=== PATIENT | male | born 1995 | race Caucasian/White ===

== ENCOUNTER 2019-01-12 16:47 | Emergency (ER) | payer SELFPAY ==
[2019-01-12 16:54] VITALS: BP 129/64; PULSE 109; RESP 18; TEMP 36.5; O2SAT 96
--- NOTE | 2019-01-12 17:31 | ED.GENADUL_ITS ---
Discharge Plan Disposition Patient Disposition: HOME Condition: Stable Discharge Details Chief Complaint: Laceration Clinical Impression: Finger laceration Primary Care Provider: None,None ED Provider: Karen Baeza Home Meds and New Rx's Prescriptions: No Action No Known Home Meds RF: 0 Discharge Instructions Instructions: Finger Laceration (ED) Additional Instructions: Keep wound clean and dry. If risk of contamination, keep wound covered. If resting at home, you may keep wound open to air. Return to emergency department in 7 days for suture removal. You will receive a call from care management regarding a follow-up appointment with a primary care doctor. Discharge Data Discharge Date/Time-TO BE ENTERED AT DEPARTURE: 01/12/19 18:34 Discharge Physician: Karen Baeza Medical Decision Making 23-year-old male who presents with right fifth finger laceration sustained with a knife while cutting [place] trees prior to arrival. Tetanus up-to-date. Denies any foreign bodies. 1.5 cm laceration on finger pad of right fifth finger. Neurovascularly intact. No active bleeding. Will need suture placement. Wound irrigated and 5 sutures placed. Wound covered with antibiotic ointment and dressed with gauze finger dressing. Patient instructed in the importance of good wound care, and covering if risk of contamination. He is instructed to return to the emergency department in 7 days for suture removal. Patient placed on care management list to arrange for follow-up appointment with the primary care doctor to establish care. HPI General Mode of arrival: ambulatory . Date/Time Provider Initiated Documentation: 01/12/19 16:57 . Limitations to Documentation: no limitations . Information obtained by: patient . HPI Narrative: Patient is a 23-year-old male who presents to the ED with right fifth finger laceration cut with a knife while cutting [place] trees approximately 6 hours ago. Tetanus up-to-date. Patient denies any other injuries. Related Data Home Medications Medication Instructions Recorded Confirmed Unknown [No Known Home Meds] 01/12/19 01/12/19 Allergies Allergy/AdvReac Type Severity Reaction Status Date / Time No Known Allergies Allergy Unverified 01/12/19 16:56 General Stated Complaint: Laceration ADOLFO: 4 Review of Systems Review of Systems All systems reviewed & are unremarkable except as noted in HPI and below Constitutional Reports as per HPI, Denies chills and Denies fever(s) Eyes Denies blurry vision ENT Denies dizziness, Denies sore throat and Denies throat swelling Cardiovascular Denies chest pain and Denies dyspnea Respiratory Denies cough and Denies dyspnea Gastrointestinal Denies abdominal pain, Denies diarrhea and Denies vomiting Genitourinary Denies hematuria and Denies dysuria Musculoskeletal Denies back pain and Denies numbness Integumentary/Breasts Denies lesions and Denies rash Neurologic Denies dizziness, Denies focal weakness and Denies numbness Allergic/Immunologic Denies throat swelling ON LICENSE OF [facility] Medical History No significant past medical history (Acute) Surgical History History of facial surgery (Acute) Social History Smoking/Tobacco Use Status: Current every day Tobacco Type: cigarettes Alcohol Intake: current Alcohol Intake frequency: a few times a week Drug use: Daily Substance use type: marijuana Do you feel safe at home: Yes Exam Const General: cooperative, healthy appearing and no acute distress HENMT Head: normal to inspection Mouth: oral mucosae normal Eyes General: appearance normal, both eyes and all related structures Neck Neck: normal visual inspection Resp Effort & Inspection: normal respiratory effort and able to speak in complete sentences Cardio Rate: regular rate Skin General skin exam: no rashes or lesions noted Neuro General: alert, awake and oriented x3 Motor: muscle tone normal throughout Other: Motor/sensory grossly intact right fifth finger Extrem General: normal capillary refill Hand/finger images: 1. 1.5 cm straight laceration on the volar aspect of finger pad of right fifth fingertip. Psych Appearance: grossly normal Affect: normal affect Course Vital Signs Temperature 97.7 F 01/12/19 16:54 Pulse 109 H 01/12/19 16:54 Respiratory Rate 18 01/12/19 16:54 Blood Pressure 129/64 01/12/19 16:54 Pulse Oximetry 96 01/12/19 16:54 Temperature 97.7 F 01/12/19 16:54 Temperature Source Skin 01/12/19 16:54 Pulse 109 H 01/12/19 16:54 Respiratory Rate 18 01/12/19 16:54 Respiratory Effort Non-Labored 01/12/19 16:56 Blood Pressure 129/64 01/12/19 16:54 Blood Pressure Position Sitting 01/12/19 16:54 Pulse Oximetry 96 01/12/19 16:54 Oxygen Delivery Method Room Air 01/12/19 16:54 Oxygen Flow Rate 0 01/12/19 16:54 Pain Level 0 01/12/19 16:56 Procedures Laceration Laceration 1: Site: hand (right 5th finger) Side (If applicable): right Size (cm): 1.5 Description: linear Depth: simple, single layer Local Anesthetic: Lidocaine 1% Amount of anesthesia used (mL): 4 Pre-repair: wound explored, irrigated extensively and deep structures intact Size (cm): 5-0 Number of sutures: 5
== END 2019-01-12 18:34 | disposition home or self-care (01) ==
LOC: ER 19:22
PROVIDERS: Emergency Provider Physician Assistant
DX: S61.216A Laceration without foreign body of right little finger without damage to nail, initial encounter (principal); W26.0XXA Contact with knife, initial encounter
CPT/HCPCS: 12001

== ENCOUNTER 2020-05-26 17:50 | Emergency (ER) | payer SELFPAY ==
[2020-05-26 17:58] VITALS: BP 133/75; PULSE 97; RESP 16; TEMP 36.3; O2SAT 98
--- NOTE | 2020-05-26 18:07 | W.ED.GENAD ---
Discharge Plan Disposition Patient Disposition: HOME Condition: Improving Discharge Details Clinical Impression: Dog bite of left hand Primary Care Provider: None,None ED Provider: Lavelle Darling Home Meds and New Rx's Prescriptions: New amoxicillin-pot clavulanate 875-125 mg tablet 1 tab PO BID 7 Days Qty: 14 RF: 0 Discharge Instructions Instructions: Animal Bite (ED) Additional Instructions: Leave current dressing in place for 24 to 36 hours, then do daily dressing changes with Band-Aid as discussed. Take antibiotics as prescribed. Return if develop foul-smelling drainage, a fever, redness or swelling of the finger or any other acute concerns. Stand Alone Forms: Work Release Medical Decision Making 24-year-old male who broke up a fight between 2 immunized dogs, 1 of which is his own. He suffered a superficial abrasions to both hands and a laceration overlying the middle phalanx on the volar aspect of the left ring finger. Wound was irrigated explored without evidence of tendon injury. Discussed with him that healing by secondary intention is preferred and the wound was dressed. Patient's tetanus was updated. He was placed on Augmentin. He is stable for outpatient management. HPI General Mode of arrival: ambulatory. Date/Time Provider Initiated Documentation: 05/26/20 17:53. Limitations to Documentation: no limitations. Information obtained by: patient. History of Present Illness 24 year old M presents to the emergency department with the chief complaint of Dog bite left hand, described as mild, Quality is described as dull, and is localized to the left and upper extremity. Patient reports no radiation. Patient started experiencing this minute(s) and it has been constant. No relieving factors improve symptom(s), No exacerbating factors reported . Patient notes no other symptoms.. Patient did receive the following treatments prior to arrival, none Related Data Home Medications Medication Instructions Recorded Confirmed amoxicillin-pot clavulanate 1 tab PO BID 7 Days #14 tab 05/26/20 Previous Rx's Medication Instructions Recorded amoxicillin-pot clavulanate 1 tab PO BID 7 Days #14 tab 05/26/20 Allergies Allergy/AdvReac Type Severity Reaction Status Date / Time No Known Allergies Allergy Unverified 05/26/20 18:04 General Stated Complaint: AnimalBite ADOLFO: 4 Review of Systems Narrative: Tetanus out of date. Dog is immunized. No other injury. No numbness or tingling. 5 systems reviewed and otherwise negative. [facility]LY [facility] Medical History (Updated 05/26/20 @ 18:19 by Lavelle Darling MD) No significant past medical history Surgical History History of facial surgery Social History Smoking/Tobacco Use Status: Current every day Tobacco Type: cigarettes Smoking risk assessment performed?: Yes Alcohol Intake: current Alcohol Intake frequency: a few times a week Drug use: Daily Substance use type: marijuana Do you feel safe at home: Yes Exam Narrative Exam Narrative: GEN: awake, alert, oriented 3. Pleasant, well groomed, interactive. HEAD: Normocephalic, atraumatic ENT: Mucous membranes moist,external ear exam unremarkable EYES: PERRL, EOMI NECK: Full ROM, no KATRINA, no menigismus CHEST/RESP: No respiratory distress EXT: Full ROM, superficial abrasions to both hands. There is a volar aspect left ring finger laceration overlying the middle phalanx. Motor is intact, distal sensation is intact Neuro: Grossly normal neurologic exam, conversant, interactive. Psych: Speech fluent, thoughts congruent, affect normal Course Vital Signs Vital signs: Vital Signs Temperature 36.3 C L 05/26/20 17:58 Pulse 97 H 05/26/20 17:58 Respiratory Rate 16 05/26/20 17:58 Blood Pressure 133/75 05/26/20 17:58 Pulse Oximetry 98 05/26/20 17:58 Temperature 36.3 C L 05/26/20 17:58 Temperature Source Skin 05/26/20 17:58 Pulse 97 H 05/26/20 17:58 Respiratory Rate 16 05/26/20 17:58 Respiratory Effort 05/26/20 18:03 Blood Pressure 133/75 05/26/20 17:58 Blood Pressure Position Sitting 05/26/20 17:58 Pulse Oximetry 98 05/26/20 17:58 Oxygen Delivery Method Room Air 05/26/20 17:58 Oxygen Flow Rate 0 05/26/20 17:58 Pain Level 8 05/26/20 17:58
--- NOTE | 2020-05-26 18:16 | NUR.NOTE ---
Nursing Note: Faxed animal bite report to [facility] and left a message on his cell voicemail that the report was at dispatch for follow up. Jacey Lance
[2020-05-26] MEDS: Amox. 875/Clav. 125, 2 TABS/BTL 1 TAB PO (18:17)
== END 2020-05-26 18:30 | disposition home or self-care (01) ==
PROVIDERS: Emergency Provider Emergency Medicine
DX: S61.255A Open bite of left ring finger without damage to nail, initial encounter (principal); W54.0XXA Bitten by dog, initial encounter
CPT/HCPCS: 90471; 99284; 99283

== ENCOUNTER 2022-10-06 20:30 | Emergency (ER) | payer SELFPAY ==
[2022-10-06 20:36] VITALS: BP 142/88; PULSE 96; RESP 18; TEMP 37.2; O2SAT 98
--- NOTE | 2022-10-06 20:45 | RT.EKG_ITS ---
APPROVED REPORT Exam: Resting ECG Reason for Exam: edema Patient Location: E HR:92 bpm ECG Measurements Heart Rate 92 AXIS OK 125 P 136 QRSd 93 QRS 103 QT 336 T 176 QTc 416 Conclusion Right and left arm electrode reversal, interpretation assumes no reversal Sinus or ectopic atrial rhythm...P axis (-45,135) Probable lateral infarct, age indeterminate...Q >35mS, T neg, V5-V6 I aVL Borderline ST elevation, anterior leads...ST >0.15mV in V1-V4
--- NOTE | 2022-10-06 21:02 | ED.GENADUL_ITS ---
Discharge Plan Disposition Patient Disposition: Home Discharge Details Clinical Impression: Bilateral edema of lower extremity Primary Care Provider: None,None ED Provider: Zana Huynh Discharge Instructions Instructions: Edema (ED) Additional Instructions: It is very important that you call the radiology department first thing in the morning to schedule your outpatient ultrasound. As discussed your edema does not seem to be attributed to your heart or your lungs but we are going to also check for potential blood clots due to elevated D-dimer result. If you develop any new or significant worsening of symptoms such as chest pain shortness of breath or difficulty breathing please return immediately to the emergency department for reassessment. Discharge Data Discharge Date/Time-TO BE ENTERED AT DEPARTURE: 10/06/22 22:32 Medical Decision Making Patient presenting to the emergency department for chief complaint of bilateral lower leg pain and swelling. Patient states that this started yesterday and has slowly gotten worse. He states swelling from the knees down. Patient denies any other past medical history, fever chills, chest pain shortness of breath or any other symptoms. Physical exam does show significant bilateral 2+ pitting edema from the knees down. Mild erythema is noted to the anterior surface of the lower extremities otherwise exam is nondiagnostic. Patient does report that he has had decreased urination output but also states he does not drink a lot of fluids and only drinks energy drinks. Suspect potential renal dysfunction, thr ombosis or cardiac nature. we will plan on also getting labs and EKG. Please see physician interpretation for full interpretation of EKG but upon my review patient is in sinus rhythm, rate of 92, there are noted some ST changes but does not meet acute STEMI criteria. We will continue to monitor. Reviewed patient's labs and patient does have slightly elevated white count of 12.03, elevated monocytes and eosinophils, CMP does show elevated carbon dioxide 32.8 normal renal function, negative troponin, negative BNP all electrolytes within normal range. Patient does have significantly elevated D-dimer at 1341 with a PT of less than 8.9 seconds. Discussed with patient risk versus benefit of anticoagulation pending ultrasound imaging. Patient is agreeable plan. We will give patient 1.5 mcgs per kilogram of Lovenox and order stat ultrasound for tomorrow morning with patient to come to the emergency department for review of results. Did inform patient he should have a low threshold to return to the emergency department for any new or significant worsening of symptoms or change in condition. We will also give patient oral Lasix to see if this helps with some of the pitting edema pending outpatient ultrasound. After discussion of diagnosis and plan of care patient has no further needs, questions, or concerns and states clear understanding to return to the emergency department for any worsening symptoms. This documentation was generated using [employer] dictation system, please disregard any oddities of phrase or misspellings. Lab Data Lab results reviewed: Yes I reviewed the patient's lab results. HPI General Mode of arrival: ambulatory . Date/Time Provider Initiated Documentation: 10/06/22 20:41 . Limitations to Documentation: no limitations . Information obtained by: patient and RN notes reviewed . History of Present Illness 26 year old M presents to the emergency department with the chief complaint of Lower leg swelling, described as moderate, with intensity rated at 7. Quality is described as aching, and is localized to the lower extremity. Patient reports no radiation. Patient started experiencing this day(s) (2) and it has been constant. No relieving factors improve symptom(s), No exacerbating factors reported . Patient notes no other symptoms.. Patient did receive the following treatments prior to arrival, none Related Data Allergies Allergy/AdvReac Type Severity Reaction Status Date / Time methylphenidate AdvReac Psychosis Unverified 10/06/22 20:45 [From Ritalin] General Stated Complaint: Cellulitis ADOLFO: 3 Review of Systems Constitutional Constitutional: Denies chills, Denies fatigue, Denies fever(s) and Denies headache(s) ENT Ears, Nose, Mouth, and Throat: Denies headache(s) Cardiovascular Cardiovascular: Reports as per HPI, Denies chest pain, Denies rapid heart rate, Reports pedal edema, Reports leg edema, Denies lightheadedness and Denies dyspnea Respiratory Respiratory: Denies dyspnea Gastrointestinal Gastrointestinal: Denies abdominal pain, Denies diarrhea, Denies nausea and Denies vomiting Genitourinary Genitourinary: Reports oliguria, Denies dysuria and Denies testicular pain Musculoskeletal Musculoskeletal: Denies back pain Integumentary/Breasts Skin/Breast: Denies rash Neurologic Neurologic: Denies headache(s) and Denies paresthesias Endocrine Endocrine: Denies fatigue PFSH All Active Problems (Updated 10/06/22 @ 22:19 by Zana Huynh NP) Bilateral edema of lower extremity (Acute) Medical History (Updated 10/06/22 @ 22:19 by Zana Huynh NP) No significant past medical history Surgical History History of facial surgery Social History Smoking/Tobacco Use Status: Current every day Tobacco Type: cigarettes Smoking risk assessment performed?: Yes Alcohol Intake: current Alcohol Intake frequency: a few times a week Drug use: Daily Substance use type: marijuana Do you feel safe at home: Yes Exam Const General: cooperative, healthy appearing, comfortable, no acute distress, not diaphoretic and not ill appearing Nutritional Appearance: average body habitus Orientation: alert, awake and oriented x3 Limitations: mental status not altered Neck Neck: normal visual inspection, full ROM, trachea midline, supple and no anterior neck swelling Carotids: normal carotid upstroke and no bruits Resp Effort & Inspection: normal respiratory effort and able to speak in complete sentences Auscultation: clear to auscultation bilaterally Cardio Jugular venous pressure: no JVD Palpation: normal PMI Rate: regular rate Rhythm: regular rhythm Heart Sounds: S1 normal, S2 normal, no click, no gallops, no murmurs and no rubs Bruits: no abdominal aortic bruits and no carotid bruits Pulses: radial pulses present bilaterally 2+ General: No CVA tenderness Skin General skin exam: no rashes or lesions noted Neuro General: patient alert, patient awake, patient oriented x3, tone normal and moves all extremities Extrem General: edema Laterality: bilateral (2+ pitting from knee down) Course Vital Signs Vital signs: Vital Signs Temperature 37.2 C 10/06/22 20:36 Pulse 96 H 10/06/22 20:36 Respiratory Rate 18 10/06/22 20:36 Blood Pressure 142/88 H 10/06/22 20:36 Pulse Oximetry 98 10/06/22 20:36 Temperature 37.2 C 10/06/22 20:36 Temperature Source Oral 10/06/22 20:36 Pulse 96 H 10/06/22 20:36 Respiratory Rate 18 10/06/22 20:36 Respiratory Effort Normal 10/06/22 20:43 Blood Pressure 142/88 H 10/06/22 20:36 Blood Pressure Position Sitting 10/06/22 20:36 Pulse Oximetry 98 10/06/22 20:36 Oxygen Delivery Method Room Air 10/06/22 20:36 Oxygen Flow Rate 0 10/06/22 20:36 Pain Level 7 10/06/22 20:36
[2022-10-06 21:17] LABS: Abs Immature Grans 0.15 10^3/uL (0.0-0.06); Absolute Basophil Count 0.16 10^3/uL (0.0-0.2); Absolute Eosinophil Count 0.71 10^3/uL (0.0-0.7); Absolute Lymphocyte Count 3.34 10^3/uL (1.2-3.4); Absolute Monocyte Count 1.17 10^3/uL (0.1-0.8); Basophils % 1.3; Eosinophils % 5.9; HGB 13.8 g/dL (13.5-17.5); Immature Grans % 1.2; Lymphocytes % 27.8; MCH 29.1 pg (27.0-33.0); MCHC 32.9 % (32.0-36.0); MCV 89 fL (80-95); MPV 9.1 fL (8.0-11.0); Monocytes % 9.7; Neutrophils % 54.1; Platelet Count 321 10^3/uL (130-400); RBC 4.74 10^6/uL (4.36-5.78); RDW 13.3 % (11.8-14.1); RDW-SD 43.6 fL; WBC 12.03 10^3/uL (4.4-10.8)
[2022-10-06 21:18] LABS: Absolute Neutrophil Count 6.51 10^3/uL (1.2-6.7)
[2022-10-06 21:34] LABS: PTT Activated 27.9 sec (21.5-31.9)
[2022-10-06 21:39] LABS: ALT 46 U/L (16-63); AST 26 U/L (15-37); Albumin 4.2 g/dL (3.4-5.0); Alkaline Phosphatase 71 U/L (46-116); Anion Gap 5.2 mmol/L (3-11); BUN 11 mg/dL (7-18); Bilirubin, Total 0.2 mg/dL (0.2-1.0); CO2 32.8 mmol/L (21.0-32.0); CREATININE 0.9 mg/dL (0.70-1.30); Calcium 9.3 mg/dL (8.5-10.1); Chloride 102 mmol/L (98-107); Estimated GFR 122.31 (mL/min/1.73m2); Glucose 94 mg/dL (74-106); NT-proBNP 17 pg/mL (<300); Potassium 3.7 mmol/L (3.5-5.1); Sodium 140 mmol/L (136-145); Total Protein 8.1 g/dL (6.4-8.2); Troponin I < 50 ng/L (<or=60)
[2022-10-06 21:48] LABS: D-Dimer 1341 ng/mlFEU (<500)
[2022-10-06 21:50] LABS: Prothrombin Time < 8.9 sec (9.3-11.0)
[2022-10-06] MEDS: Furosemide 20 MG TAB PO (22:25)
[2022-10-06] MEDS: Enoxaparin 120 MG/0.8 ML SYR SC (22:25)
--- NOTE | 2022-10-08 11:03 | NUR.NOTE ---
Nursing Note: Per DI patient was a no sow for the booked appt.
== END 2022-10-06 22:32 | disposition home or self-care (01) ==
PROVIDERS: Emergency Provider Nurse Practitioner Family
DX: R60.0 Localized edema (principal); L53.9 Erythematous condition, unspecified; D72.829 Elevated white blood cell count, unspecified; R79.81 Abnormal blood-gas level; R79.1 Abnormal coagulation profile; R39.12 Poor urinary stream
CPT/HCPCS: 36415; 80053; 93005; 96372; 99284; 83735; 83880; 84484; 85025; 85379; 85610; 85730; 93010; J1650